=== PATIENT | female | born 1965 | race Caucasian/White ===

== ENCOUNTER → 2019-12-02 08:19 | Outpatient (REF) | payer OTHER, SELFPAY | LOC: ANHLAB 08:19 | PROVIDERS: Visit Provider Nurse Practitioner | DX: D22.5 Melanocytic nevi of trunk (principal) | CPT/HCPCS: 88305 ==

== ENCOUNTER → 2020-12-07 08:26 | Outpatient (REF) | payer BC, SELFPAY | LOC: ANHLAB 08:26 | PROVIDERS: Visit Provider Nurse Practitioner | DX: D22.39 Melanocytic nevi of other parts of face (principal) | CPT/HCPCS: 88305 ==

== ENCOUNTER 2025-05-25 00:22 | Day surgery (SDC) | payer BC, SELFPAY ==
--- OUTSIDE RECORDS SUMMARY | 2010-07-08 18:00 | XMS_ITS | Continuity of Care Document ---
Author Organization [facility] Address [address] [place] [address] Phone Care Team Providers Care Contact Agent Name Role Phone Aravind Brothers MD Unavailable Unavailable Medications Medication Instructions Dosage Effective Dates (start - stop) Status Comments MAXAIR AUTOHALER 0.2MG MISCELL 2 Q 4HR - Active DICLOXACILLIN SODIUM 500MG CAP 1 QID - No Longer Active FLOVENT HFA 44 MCG INHALER 2 BID - No Longer Active FLOVENT 44MCG INHALER 2 BID - No Longer Active FLONASE 0.05% NASAL SPRAY 2 QD - No Longer Active ALBUTEROL 90MCG PUFFS 2 Q 4HR - No Longer Active FLONASE 50MCG APPLICS 2 QD - No Longer Active FLOVENT 44MCG PUFFS 2 BID - No Longer Active Advance Directives Directive Yes / No Effective Date File Name No Information Encounters Encounter Description Practice Location Reason(s) For Visit Diagnoses Date Provider Providers Copied on Encounter [employer] [employer], [address], [place], [place], [id number], [place] tel:[phone] [facility] No Information 1 Zev Nazario. [address], [id number] , . tel: [phone] [employer], [address], [place], [place], [id number], tel:[phone] [facility] ALLERGIC RHINITIS NECRHINITIS DUE TO POLLEN Aug-2 7200 7 Zev Nazario. [address] [place] [address], [id number] , . tel: [phone] [employer], [address], [place], [place], [id number], tel:[phone] [facility] INTRINSIC ASTHMA NOSANGIONEUROTIC EDEMA Solitario-0 200 6 Zev Nazario. [address] [place] [address], [id number] , . tel: [phone] [employer], [address], [place], [place], [address], tel:[phone] [facility] HAIR DISEASES NEC Apr-0 6200 5 Zev Nazario. [address] [place] [address], [id number] , . tel: [phone] Family History Family Member Type Diagnosis Age At Onset No Information Payers Payer name Insurance type Covered constitution party ID Authoriza tion(s) No Information Social History Type Description Quantity Date Captured Comments Sex Female Smoking Status No Information Chief Complaint And Reason For Visit No Information Reason For Referral Reason For Referral No Information History Of Present Illness Encounter Date Complaint History Of Prese nt Illness No Information Functional Status Date Functional Assessmen t No Information Instructions Date Instruction Additional Infor mation No Information Assessments Type Assessment Date No Information Patient Care Teams Name Effective Dates (start - stop) Status Members No Information
--- OUTSIDE RECORDS SUMMARY | 2025-02-04 11:30 | XMS_ITS ---
Author Organization [facility] [place] ([address]) Address [address] [facility] [address] [place] [address] Care Team Providers Care Claims Coordinator Name Role Phone TimLia Primary Care Provider Farideh Stein Unavailable [phone] REASON FOR VISIT SCIT - Traditional Schedule Allergy Immunotherapy Medications Medication SIG (Take, Route, Frequency, Duration) Notes Start Date End Date Status SIT (TRADITIONAL) variable per schedule SC per schedule; Duration: to be determined Active Social History Sex Assigned At : Social History Observation Description Sex Assigned At Female Encounters Encounter Location Date Provider Diagnosis [facility] [address] [facility] [address] [place] [address] 02/04/2025 Farideh Payne Allergic rhinitis du e to pollen J30.1 ; Other allergic rhinitis J30.89 ; Allergic rhinitis due to animal (cat) (dog) hair and dander J30.81 and Other chronic allergic conjunctivitis H10.45 Assessments Encounter Date Diagnosis (ICD Code) Assessment Notes Treatment Notes Treatment Clinical Notes Section Notes 02/04/2025 Allergic rhinitis due to pollen (ICD-10 - J30.1) 02/04/2025 Other allergic rhinitis (ICD-10 - J30.89) 02/04/2025 Allergic rhinitis due to animal (cat) (dog) hair and dander (ICD-10 - J30.81) 02/04/2025 Other chronic allergic conjunctivitis (ICD-10 - H10.45) Plan Of Treatment Medication Medication Name Sig Start Date Stop Date Notes SIT (TRADITIONAL) variable per schedule SC per schedule; Duration: to be determined Next Appt Details Follow Up: 1 Week, Reason: Provider Name:Farideh quesada, 06/04/2025 09:20:00 AM, [address] [employer], [address] [place] [address], [address], Provider Name:Farideh quesada, 06/11/2025 09:00:00 AM, [address], [address], [place], [address], Provider Name:Farideh quesada, 06/18/2025 09:00:00 AM, [address] [employer], [address] [address], [place], [address], Progress Notes * Marco TIDWELLOB: [birth year] (59 yo F)Acc No.[id number]:02/04/2025 SCIT-Aeroallergen Patient: Natividad OG Provider: Abby Payne MD :1965 A ge:59 Y S ex:Female Date:02/04/2025 Address:[address] [place] [address], [facility] Pcp:Lia Tim Subjective: * Chief Complaints: * 1 . SCIT - Traditional Schedule Allergy Immunotherapy. * HPI: * Introduction: The patient is here for scheduled immunotherapy. Please see the attached specialty form regarding the specifics of the administration of these vaccines. As per our protocol, they must undergo a screening health questionnaire (medication changes, reaction(s) to last immunotherapy dose(s), current health status, ACT (if appropriate), self-injectable epinephrine on patient(?) and peak flow (if appropriate)). Also, the patient must wait in our office for 30 minutes after receiving the vaccine(s). Furthermore, every patient must have an epinephrine pen (self-injectable) with them at the time of administration--and carry if for the following 1.5 hours after they leave our office. The patient must also have taken their antihistamine the day of the injection, preferably 2 hours prior. The consent form for SCIT (subcutaneous immunotherapy) is on file. * Medical History: Objective: * Vitals: Assessment: * Assessment: 1. A llergic rhinitis due to pollen - J30.1 (Primary) 2 . O ther allergic rhinitis - J30.89 3 . A llergic rhinitis due to animal (cat) (dog) hair and dander - J30.81 4 . O ther chronic allergic conjunctivitis - H10.45 Plan: * Treatment: * Procedure Codes: 9 5117 IMMUNOTHERAPY INJECTIONS * Follow Up: 1 Week * Billing Information: * Visit Code: * Procedure Codes: 07444 IMMUNOTHERAPY INJECTIONS. * Electronic signature of Ebony Payne MD on 05/25/2025 at 12:25 AM FIELD LIABILITY GENERALIST Sign off status: Pending * Provider: Abby Payne MD Date: 0 02/04/2025 Generated for Pattie bruce/Tami/Ketty on: 07/25/2024 12:25 AM FIELD LIABILITY GENERALIST History and Physical Notes * HPI (History of Present Illness) Category Sub-Category Detail Notes Category Not es *Introduction The patient is here for scheduled immunotherapy. Please see the attached specialty form regarding the specifics of the administration of these vaccines. As per our protocol, they must undergo a screening health questionnaire (medication changes, reaction(s) to last immunotherapy dose(s), current health status, ACT (if appropriate), self-injectable epinephrine on patient(?) and peak flow (if appropriate)). Also, the patient must wait in our office for 30 minutes after receiving the vaccine(s). Furthermore, every patient must have an epinephrine pen (self-injectable) with them at the time of administration--and carry if for the following 1.5 hours after they leave our office. The patient must also have taken their antihistamine the day of the injection, preferably 2 hours prior. The consent form for SCIT (subcutaneous immunotherapy) is on file.
[2025-05-06 11:35] VITALS: BMI 22.0
--- OUTSIDE RECORDS SUMMARY | 2025-05-19 07:00 | XMS_ITS ---
Author Organization [facility] [place] ([address]) Address [address] [facility] [address] [place] [address] Care Team Providers Care Grain Broker And Market Operator Name Role Phone TimLia Primary Care Provider Farideh Stein Unavailable [phone] REASON FOR VISIT SCIT - Traditional Schedule Allergy Immunotherapy Medications Medication SIG (Take, Route, Frequency, Duration) Notes Start Date End Date Status SIT (TRADITIONAL) variable per schedule SC per schedule; Duration: to be determined Active Social History Sex Assigned At : Social History Observation Description Sex Assigned At Female Encounters Encounter Location Date Provider Diagnosis [facility] [address] [facility] [facility] [address] [place] [address] 05/19/2025 Farideh Payne Allergic rhinitis du e to pollen J30.1 ; Other allergic rhinitis J30.89 ; Allergic rhinitis due to animal (cat) (dog) hair and dander J30.81 and Other chronic allergic conjunctivitis H10.45 Assessments Encounter Date Diagnosis (ICD Code) Assessment Notes Treatment Notes Treatment Clinical Notes Section Notes 05/19/2025 Allergic rhinitis due to pollen (ICD-10 - J30.1) 05/19/2025 Other allergic rhinitis (ICD-10 - J30.89) 05/19/2025 Allergic rhinitis due to animal (cat) (dog) hair and dander (ICD-10 - J30.81) 05/19/2025 Other chronic allergic conjunctivitis (ICD-10 - H10.45) Plan Of Treatment Medication Medication Name Sig Start Date Stop Date Notes SIT (TRADITIONAL) variable per schedule SC per schedule; Duration: to be determined Next Appt Details Follow Up: 1 Week, Reason: Provider Name:Farideh quesada, 06/04/2025 09:20:00 AM, [address] [employer], [address] [place] [address], [address], Provider Name:Farideh quesada, 06/11/2025 09:00:00 AM, [address] [employer], [address] [facility], [place], [address], Provider Name:Farideh quesada, 06/18/2025 09:00:00 AM, [address] [employer], [address] [address], [place], [address], Progress Notes * Marco TIDWELLOB: [birth year] (59 yo F)Acc No.[id number]:05/19/2025 SCIT-Aeroallergen Patient: Natividad OG Provider: Abby Payne MD :1965 A ge:59 Y S ex:Female Date:05/19/2025 Address:[address] [place] [address], [facility] Pcp:Lia Tim Subjective: * Chief Complaints: [...] Information: * Visit Code: * Procedure Codes: 83767 IMMUNOTHERAPY INJECTIONS. * Electronic signature of Ebony Payne MD on 05/25/2025 at 12:25 AM RETAIL OFFICE MANAGER Sign off status: Pending * Provider: Abby Payne MD Date: 07/19/2024 Generated for Pattie bruce/Tami/Ketty on: 07/25/2024 12:25 AM RETAIL OFFICE MANAGER History and Physical Notes * HPI (History [...]
--- OUTSIDE RECORDS SUMMARY | 2025-05-25 00:25 | XMS_ITS | Encounter Summary ---
Author Organization [facility] Address [facility] [place] [address] Care Team Providers Care Hand Tier Name Role Phone Lia Tim DO Primary Care Provider [phone] Encounter Details Date Type Department Care Team (Late st Contact Info) Description 02/10/2020 Abstract [facility] [address] [place] [place] [address] Lia Tim DO [address] [place] [address] Social History Tobacco Use Types Packs/Day Years Used Date Smoking Tobacco: Never Smokeless Tobacco: Never Alcohol Use Standard Drinks/Week Comments Yes 0 (1 standard drink = 0.6 oz pur e alcohol) AUDIT-C Answer Date Recorded Frequency of Alcohol Consumption 2-3 times a wee k 11/22/2018 Average Number of Drinks 1 or 2 019 Frequency of Binge Drinking Never 10/31 Comments No Sex and Gender Information Value Date Recorded Sex Assigned at Female 07/28/2024 6:04 PM OYSTER UNLOADER Legal Sex Female 7:52 AM CDT Gender Identity Female 07/28/2024 6:04 PM OYSTER UNLOADER Sexual Orientation Straight 07/28/2024 6: 04 PM OYSTER UNLOADER 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 No / Unsure 01/20/2020 1:46 PM CDT documented as of this encounter Plan of Treatment Not on file documented as of this encounter Procedures Procedure Name Priority Date/Time Associated Diagnosis Comments TSH (OUTSIDE LAB) Routine 08/20/2019 COMPREHENSIVE METABOLIC PANEL Routine 08/20/2019 LIPID PANEL Routine 08/20/2019 CBC, AUTO, NO DIFF Routine 08/20/2019 documented in this encounter Results * LIPID PANEL (08/20/2019) CHOLESTEROL 228 Comment:already reviewed HDL 120 TRIGLYCERIDES 64 LDL (CALCULATED) 95 08/20/2019 [facility] Abstract LABORATORY Final Result * TSH (OUTSIDE LAB) (08/20/2019) TSH 1.576 Comment:already reviewed 08/20/2019 us Doc [facility] Abstract LAB-OUTSIDE/ABSTRACTED Final Result * COMPREHENSIVE METABOLIC PANEL (08/20/2019) SODIUM S/P/B 143 Comment:already reviewed POTASSIUM S/P/B 4.0 CO2 28 CHLORIDE S/P/B 105 GLUCOSE 91 mg/dL CALCIUM S/P/B 9.3 BUN 12 CREATININE S/P/B 0.7 0.5 - 1.0 ALKALINE PHOSPHATASE S/P/B 82 ALT 37 AST 26 BILIRUBIN TOTAL S/P/B 0.5 ALBUMIN S/P/B 3.8 3.5 - 5.0 TOTAL PROTEIN S/P/B 7.5 08/20/2019 us Doc [facility] Abstract LABORATORY Final Result * CBC, AUTO, NO DIFF (08/20/2019) WBC 4.5 Comment:already reviewed RBC 4.8 HGB 14.1 HCT 45.1 MCV 93.6 MCH 29.3 MCHC 31.3 RDW 13.4 PLT 335 MPV 10 08/20/2019 us Doc [facility] Abstract LABORATORY Final Result documented in this encounter Visit Diagnoses Not on filedocumented in this encounter Additional Health Concerns Infection Onset Date Last Indicated Resolved Time COVID-19 Rule Out 01/24/2020 01/24/2020 05/23/2021 3:32 PM OYSTER UNLOADER COVID-19 Rule Out 12/04/2020 12/04/2020 05/23/2021 6:50 PM OYSTER UNLOADER COVID-19 Rule Out 07/10/2022 07/10/2022 07/10/2022 9:58 AM OYSTER UNLOADER COVID-19 Rule Out 07/11/2022 07/11/2022 07/11/2022 12:54 PM OYSTER UNLOADER COVID-19 Rule Out 09/26/2022 09/26/2022 09/26/2022 3:12 PM CDT COVID-19 Rule Out 07/28/2024 07/28/2024 07/28/2024 12:19 PM OYSTER UNLOADER documented as of this encounter Care Teams Hand Tier Relationship Specialty Start Date End Date Lia Tim DO [address] [place] [address] [place] [address] PCP - General FAMILY PRACTICE 11/21/18 documented as of this encounter
--- OUTSIDE RECORDS SUMMARY | 2025-05-25 00:25 | XMS_ITS | Encounter Summary ---
Author Organization [facility] Address [facility] [place] [address] Care Team Providers Care Auto Glass Installer Name Role Phone Lia Tim DO Primary Care Provider [phone] Encounter Details Date Type Department Care Team (Late st Contact Info) Description 02/05/2023 MyChart Message Enc [facility] [address] [place] [address] Lai Tim DO [address] [place], [place] [id number] Poison Jaylyn Social History Tobacco Use Types Packs/Day Years Used Date Smoking Tobacco: Never Smokeless Tobacco: Never Alcohol Use Standard Drinks/Week Comments Yes 0 (1 standard drink = 0.6 oz pur e alcohol) AUDIT-C Answer Date Recorded Frequency of Alcohol Consumption 2-3 times a wee k 11/22/2018 Average Number of Drinks 1 or 2 019 Frequency of Binge Drinking Never 10/31 PHQ-2 Answer Date Recorded PHQ-2 Score - If the patient scores above 3, please move on to questions 3-9 0 10/28/2020 Comments No Sex and Gender Information Value Date Recorded Sex Assigned at Female 07/28/2024 6:04 PM BIOENGINEER Legal Sex Female 7:52 AM CDT Gender Identity Female 07/28/2024 6:04 PM BIOENGINEER Sexual Orientation Straight 07/28/2024 6: 04 PM BIOENGINEER 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 * Emani Tavera LPN - 02/05/2023 3:27 PM CDT My apologizes, what is MDP? * Emani Tavera LPN - 02/05/2023 3:02 PM CDT Pls advise. Thank you! documented in this encounter Plan of Treatment Not on file documented as of this encounter Visit Diagnoses Diagnosis Poison jaylyn- Primary Contact dermatitis and other eczema due to plants (except food) documented in this encounter Additional Health Concerns Infection Onset Date Last Indicated Resolved Time COVID-19 Rule Out 07/28/2024 07/28/2024 07/28/2024 12:19 PM BIOENGINEER documented as of this encounter Care Teams Auto Glass Installer Relationship Specialty Start Date End Date Lia Tim DO [address] [place] [address] [place] [address] PCP - General FAMILY PRACTICE 11/21/18 documented as of this encounter
--- OUTSIDE RECORDS SUMMARY | 2025-05-25 00:25 | XMS_ITS | Encounter Summary ---
Author Organization [facility] Address [facility] [place] [address] Care Team Providers Care Vest Baster Name Role Phone Lia Tim DO Primary Care Provider [phone] Encounter Details Date Type Department Care Team (Late st Contact Info) Description 04/04/2021 MyChart Message Enc [facility] [address] [place] [address] Lia Tim DO [address] [place] [id number] RE: Medication Questions Social History Tobacco Use Types Packs/Day Years [...] Sex Assigned at Female 07/28/2024 6:04 PM SECURITY RESEARCHER Legal Sex Female 7:52 AM CDT Gender Identity Female 07/28/2024 6:04 PM SECURITY RESEARCHER Sexual Orientation Straight 07/28/2024 6: 04 PM SECURITY RESEARCHER 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 No / Unsure 04/07/2021 3:41 PM CDT documented as of this encounter Progress Notes * Lia Tim DO - 04/04/2021 4:44 PM CDT Yes an office visit for steroids. She often is worse than which she thinks she is. documented in this encounter Plan of Treatment Not on file documented as of this encounter Visit Diagnoses Not on filedocumented in this encounter Additional Health Concerns Infection Onset Date Last Indicated Resolved Time COVID-19 Rule Out 01/24/2020 01/24/2020 05/23/2021 3:32 PM SECURITY RESEARCHER COVID-19 Rule Out 12/04/2020 12/04/2020 05/23/2021 6:50 PM SECURITY RESEARCHER COVID-19 Rule Out 07/10/2022 07/10/2022 07/10/2022 9:58 AM SECURITY RESEARCHER COVID-19 Rule Out 07/11/2022 07/11/2022 07/11/2022 12:54 PM SECURITY RESEARCHER COVID-19 Rule Out 09/26/2022 09/26/2022 09/26/2022 3:12 PM CDT COVID-19 Rule Out 07/28/2024 07/28/2024 07/28/2024 12:19 PM SECURITY RESEARCHER documented as of this encounter Care Teams Vest Baster Relationship Specialty Start Date End Date Lia Tim DO [address] [place] [address] [place] [address] PCP - General FAMILY PRACTICE 11/21/18 documented as of this encounter
--- OUTSIDE RECORDS SUMMARY | 2025-05-25 00:25 | XMS_ITS | Encounter Summary ---
Author Organization [facility] Address [facility] [place] [address] Care Team Providers Care Construction Technology Instructor Name Role Phone GlenroyLia Khurram MAY Primary Care Provider [phone] Encounter Details Date Type Department Care Team (Late st Contact Info) Description 10/02/2022 MyChart Message Enc [facility] [address] [place] [address] Heather De Jesus, PRESCHOOL SUBSTITUTE TEACHER Sinus infection Social History Tobacco Use Types Packs/Day Years Used Date Smoking Tobacco: Never Smokeless Tobacco: Never Alcohol Use Standard Drinks/Week Comments Yes 0 (1 standard drink = 0.6 oz pur e alcohol) AUDIT-C Answer Date Recorded Frequency of Alcohol Consumption 2-3 times a dorene k 11/22/2018 Average Number of Drinks 1 or 2 019 Frequency of Binge Drinking Never 10/31 PHQ-2 Answer Date Recorded PHQ-2 Score - If the patient scores above 3, please move on to questions 3-9 0 10/28/2020 Comments No Sex and Gender Information Value Date Recorded Sex Assigned at Female 07/28/2024 6:04 PM CONSULTANT ELECTRONICS Legal Sex Female 7:52 AM CDT Gender Identity Female 07/28/2024 6:04 PM CONSULTANT ELECTRONICS Sexual Orientation Straight 07/28/2024 6: 04 PM CONSULTANT ELECTRONICS 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 No / Unsure 10/03/2022 11:14 AM CDT documented as of this encounter Progress Notes * Maria Eugenia River LPN - 10/03/2022 10:31 AM CDT Office visit scheduled. * CIRO Navarro - 10/03/2022 7:45 AM CDT I would like to see her today or tomorrow to re check her lungs and further evaluate her other symptoms. * Eliane Salamanca MA - 10/03/2022 7:12 AM CDT Patient was seen 09/26/22 tested positive for Influenza B, please advise. Do you want patient to come back in for another o.v. to be re evaluated? documented in this encounter Plan of Treatment Not on file documented as of this encounter Visit Diagnoses Not on filedocumented in this encounter Additional Health Concerns Infection Onset Date Last Indicated Resolved Time COVID-19 Rule Out 07/28/2024 07/28/2024 07/28/2024 12:19 PM CONSULTANT ELECTRONICS documented as of this encounter Care Teams Construction Technology Instructor Relationship Specialty Start Date End Date Lia Tim DO [address] [place] [address] [place] [address] PCP - General FAMILY PRACTICE 11/21/18 documented as of this encounter
--- OUTSIDE RECORDS SUMMARY | 2025-05-25 00:26 | XMS_ITS | Encounter Summary ---
Author Organization [facility] Address [facility] [place] [address] Care Team Providers Care Technical Support Engineer Name Role Phone Lia Tim DO Primary Care Provider [phone] Encounter Details Date Type Department Care Team (Late st Contact Info) Description 10/13/2024 MyChart Message Enc [facility] [address] [place] [phone] Lia Tim DO [address] [place], [place] [phone] [place] eye/conjunctivitis Social History Tobacco Use Types Packs/Day Years Used Date Smoking Tobacco: Never Smokeless Tobacco: Never Alcohol Use Standard Drinks/Week Comments Yes 0 (1 standard drink = 0.6 oz pur e alcohol) AUDIT-C Answer Date Recorded Frequency of Alcohol Consumption 2-3 times a wee k 11/22/2018 Average Number of Drinks 1 or 2 019 Frequency of Binge Drinking Never 10/31 PHQ-2 Answer Date Recorded Patient Health Questionnaire-2 Score 0 07/28/2024 Comments No Sex and Gender Information Value Date Recorded Sex Assigned at Female 07/28/2024 6:04 PM BINDER CASER Legal Sex Female 7:52 AM CDT Gender Identity Female 07/28/2024 6:04 PM BINDER CASER Sexual Orientation Straight 07/28/2024 6: 04 PM BINDER CASER 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
--- OUTSIDE RECORDS SUMMARY | 2025-05-25 00:26 | XMS_ITS | Patient Health Record ---
Author Organization [facility] [employer] [place] ([address]) Address [address] [place] [address] Care Team Providers Care Standards Engineer Name Role Phone Lia Tim Primary Care Provider Farideh Stein Unavailable [phone] Allergies No Known Allergies Results Component Value Reference Range Notes Spirometry Reviewed date: Interpretation:Abnormal Performing Lab: Notes/Report: Abnormal SpiroPreBronchodilator_FVC 3.44 SpiroPostBronchodilator_FEF25_75 0 SpiroPreBronchodilator_FEF25_75 0.96 SpiroPreBronchodilator_FEV1 2.21 SpiroPrecentPredictionPost_FEF25_75 0 SpiroPrecentPredictionPost_FEV1 0 SpiroPrecentPredictionPost_FEV1_OVER_FVC 0 SpiroPrecentPredictionPost_FVC 0 SpiroPrecentPredictionPre_FEF25_75 38.1 SpiroPrecentPredictionPre_FEV1 88.4 SpiroPrecentPredictionPre_FEV1_OVER_FVC 81.1 SpiroPrecentPredictionPre_FVC 109.6 SpiroPredicted_FEF25_75 2.52 SpiroPreBronchodilator_FEV1_OVER_FVC 64.21 SpiroPreBronchodilator_PEF 5.82 SpiroPostBronchodilator_FVC 0 SpiroPostBronchodilator_FEV1 0 SpiroPostBronchodilator_FEV1_OVER_FVC 0 SpiroPostBronchodilator_PEF 0 SpiroPredicted_FVC 3.14 SpiroPredicted_FEV1 2.5 SpiroPredicted_FEV1_OVER_FVC 79.13 SpiroPredicted_PEF 5.78 Reason For Referral No Information Medications Medication SIG (Take, Route, Frequency, Duration) Notes Start Date End Date Status Cetirizine HCl 10 MG 1 tab(s) orally onc e a day; Duration: 30 days Active Auvi-Q 0.3 mg as directed intramuscularly once; Duration: 30 day(s) Active Ventolin HFA 108 (90 Base) MCG/ACT 2 puff(s) inhaled every 6 hours Active AUVI-Q 0.3 mg as directed intramuscularly once; Duration: 30 day(s) Active SIT (TRADITIONAL) variable per schedule SC per schedule; Duration: to be determined Active Pataday 0.2 % 1 drop into affected eye Ophthalmic Once a day Active VENTOLIN HFA 90 mcg/inh 2 puff(s) inhale d every 6 hours Active methylPREDNISolone 4 MG as directed Oral ly daily; Duration: 6 days 02/10/2025 Active Fluticasone-Salmeterol 232-14 MCG/ACT 2 puffs Inhalation Twice a day; Duration: 90 days Active Amoxicillin-Pot Clavulanate 875-125 MG 1 tablet Orally every 12 hrs; Duration: 10 days 02/10/2025 Active Montelukast Sodium 10 MG 1 tablet Orally Once a day; Duration: 90 days Active Ipratropium Redgranite 0.06 % 2 sprays in each nostril Nasally three times a day; Duration: 30 days Active Citalopram Hydrobromide 10 MG 1 tab(s) orally once a day Active Vitamin D3 *Please review and pick correct strength-formula tion from [employer] options. If intended option is not shown, discontinue and re-order from [employer]* Active CETIRIZINE 10 mg 1 tab(s) orally once a day; Duration: 30 days Active Triamcinolone Acetonide 0.1 % 1 osman applied topically Qday, PRN; Duration: 90 days 08/23/2022 Active NASAL WASHES N/A as directed intranasally as needed; Duration: 30 Active Azelastine HCl 137 MCG/SPRAY 2 sprays in each nostril Nasally Twice a day; Duration: 30 days 02/19/2024 Active Immunizations Vaccine Route Administration Date Status Comme nts NOC Influenza-Fluzone Unknown 04/08/2021 Administered COVID-19 (Moderna) Unknown 04/29/2021 Administered Social History Tobacco Use: Social History Observation Description Date Details (start date - stop date) Never Smoker NA - NA Sex Assigned At : Social History Observation Description Sex Assigned At Female Tobacco Control (Standard) Question Answer Notes Tobacco use: Nonsmoker AUDIT-C (Standard) Question Answer Notes Did you have a drink contain ing alcohol in the past year? Yes How often did you have a dri nk containing alcohol in the past year? 2 to 3 times a week (3 points) How many drinks did you have on a typical day when you were drinking in the past year? 3 or 4 drinks (1 point) How often did you have six o r more drinks on one occasion in the past year? Never (0 point) Points 4 Interpretation Positive Problems Problem Type SNOMED Code ICD Code Onset Dates Problem Status W/U Status Risk Notes Problem Anxiety disorder (632037392) Anxiety disorder, unspecified (F41.9) Active confirmed Problem Chronic allergic conjunctivitis (38670856) Other chronic allergic conjunctivitis (H10.45) Active confirmed Problem Allergic rhinitis caused by animal hair and dander (814188871495706) Allergic rhinitis due to animal (cat) (dog) hair and dander (J30.81) Active confirmed Problem Allergic rhinitis (98984949) Other allergic rhinitis (J30.89) Active confirmed Problem Uncomplicated moderate persistent asthma (348908785) Moderate persistent asthma, uncomplicated (J45.40) Active confirmed Problem Allergic rhinitis caused by pollen (disorder) (37729286) Allergic rhinitis due to pollen (J30.1) Active confirmed Problem Allergic rhinitis caused by animal hair and dander (337084431603084) Allergic rhinitis due to animal (cat) (dog) hair and dander (J30.81) Active confirmed Problem Allergic rhinitis (09924323) Other allergic rhinitis (J30.89) Active confirmed Problem Chronic allergic conjunctivitis (87081107) Other chronic allergic conjunctivitis (H10.45) Active confirmed Problem Allergy to seafood (27249830) Allergy to seafood (Z91.013) Active confirmed Vital Signs Oximetry 98 % 02/10/2025 Blood pressure diastolic 80 mm Hg 02/10/2025 Height 64 in 02/10/2025 Blood pressure systolic 123 mm Hg 02/10/2025 Weight 140.2 lbs 02/10/2025 BMI 24.06 kg/m2 02/10/2025 Encounters Encounter Location Date Provider Diagnosis [facility] [address] [place] [phone] 03/04/2025 Farideh Payne Allergic rhinitis du e to pollen J30.1 ; Other allergic rhinitis J30.89 ; Allergic rhinitis due to animal (cat) (dog) hair and dander J30.81 and Other chronic allergic conjunctivitis H10.[address] [phone] 01/12/2025 Farideh Payne Allergic rhinitis du e to pollen J30.1 ; Other allergic rhinitis J30.89 ; Allergic rhinitis due to animal (cat) (dog) hair and dander J30.81 and Other chronic allergic conjunctivitis H10.45 [facility] [address] [place] [phone] 12/22/2024 Farideh Payne Allergic rhinitis du e to pollen J30.1 ; Other allergic rhinitis J30.89 ; Allergic rhinitis due to animal (cat) (dog) hair and dander J30.81 and Other chronic allergic conjunctivitis H10.45 [facility] [address] [place] [phone] 12/01/2024 Farideh Payne Allergic rhinitis du e to pollen J30.1 ; Other allergic rhinitis J30.89 ; Allergic rhinitis due to animal (cat) (dog) hair and dander J30.81 and Other chronic allergic conjunctivitis H10.[address] [phone] 11/13/2024 Farideh Payne Allergic rhinitis du e to pollen J30.1 ; Other allergic rhinitis J30.89 ; Allergic rhinitis due to animal (cat) (dog) hair and dander J30.81 and Other chronic allergic conjunctivitis H10.[address] [phone] 10/30/2024 Farideh Payne Allergic rhinitis du e to pollen J30.1 ; Other allergic rhinitis J30.89 ; Allergic rhinitis due to animal (cat) (dog) hair and dander J30.81 and Other chronic allergic conjunctivitis H10.45 [facility] [address] [place] [address] [employer] [address] [address] 10/02/2024 Farideh Payne Allergic rhinitis du e to pollen J30.1 ; Other allergic rhinitis J30.89 ; Allergic rhinitis due to animal (cat) (dog) hair and dander J30.81 and Other chronic allergic conjunctivitis H10.45 [facility] [address] [place], [place] [address] [address] [place] [phone] 09/10/2024 Faridehdayanara Liebermanm Allergic rhinitis du e to pollen J30.1 ; Other allergic rhinitis J30.89 ; Allergic rhinitis due to animal (cat) (dog) hair and dander J30.81 and Other chronic allergic conjunctivitis H10.45 [facility] [address] [place] [address] [address] [phone] 08/05/2024 aFrideh Liebermanm Allergic rhinitis du e to pollen J30.1 ; Other allergic rhinitis J30.89 ; Allergic rhinitis due to animal (cat) (dog) hair and dander J30.81 and Other chronic allergic conjunctivitis H10.45 [facility] [address] [place], [place] [address] [address] [phone] 07/15/2024 Farideh Payne Allergic rhinitis du e to pollen J30.1 ; Other allergic rhinitis J30.89 ; Allergic rhinitis due to animal (cat) (dog) hair and dander J30.81 and Other chronic allergic conjunctivitis H10.45 [facility] [address] [place], [place] [address] [address] [place] [phone] 06/23/2024 Farideh Elmer Allergic rhinitis du e to pollen J30.1 ; Other allergic rhinitis J30.89 ; Allergic rhinitis due to animal (cat) (dog) hair and dander J30.81 and Other chronic allergic conjunctivitis H10.45 [facility] [address] [place], [place] [address] [address] [place] [phone] 06/17/2024 Faridehdayanara Liebermanm Allergic rhinitis du e to pollen J30.1 ; Other allergic rhinitis J30.89 ; Allergic rhinitis due to animal (cat) (dog) hair and dander J30.81 and Other chronic allergic conjunctivitis H10.45 [facility] [address] [place] [phone] 06/02/2024 Farideh Payne Allergic rhinitis du e to pollen J30.1 ; Other allergic rhinitis J30.89 ; Allergic rhinitis due to animal (cat) (dog) hair and dander J30.81 and Other chronic allergic conjunctivitis H10.45 [facility] [address] [place] [phone] 05/27/2024 Farideh Payne Allergic rhinitis du e to pollen J30.1 ; Other allergic rhinitis J30.89 ; Allergic rhinitis due to animal (cat) (dog) hair and dander J30.81 and Other chronic allergic conjunctivitis H10.45 [facility] [address] [place] [phone] 04/30/2025 Farideh Payne Allergic rhinitis du e to pollen J30.1 ; Other allergic rhinitis J30.89 ; Allergic rhinitis due to animal (cat) (dog) hair and dander J30.81 and Other chronic allergic conjunctivitis H10.45 [facility] [address] [place] [phone] 02/10/2025 Farideh Payne Moderate persistent asthma, uncomplicated J45.40 ; Acute upper respiratory infection, unspecified J06.9 ; Other chronic allergic conjunctivitis H10.45 ; Allergic rhinitis due to pollen J30.1 ; Allergic rhinitis due to animal (cat) (dog) hair and dander J30.81 ; Other allergic rhinitis J30.89 and Allergy to seafood Z91.013 [facility] [address] [place] [phone] 10/14/2024 Farideh Payne Moderate persistent asthma, uncomplicated J45.40 ; Acute upper respiratory infection, unspecified J06.9 ; Other chronic allergic conjunctivitis H10.45 ; Allergic rhinitis due to pollen J30.1 ; Allergic rhinitis due to animal (cat) (dog) hair and dander J30.81 ; Other allergic rhinitis J30.89 and Allergy to seafood Z91.013 [facility] [address] [phone] 04/06/2025 Farideh Payne Allergic rhinitis du e to pollen J30.1 ; Other allergic rhinitis J30.89 ; Allergic rhinitis due to animal (cat) (dog) hair and dander J30.81 and Other chronic allergic conjunctivitis H10.45 Assessments Encounter Date Diagnosis (ICD Code) Assessment Notes Treatment Notes Treatment Clinical Notes Section Notes 05/27/2024 Allergic rhinitis due to pollen (ICD-10 - J30.1) 06/02/2024 Allergic rhinitis due to pollen (ICD-10 - J30.1) 06/17/2024 Allergic rhinitis due to pollen (ICD-10 - J30.1) 06/23/2024 Allergic rhinitis due to pollen (ICD-10 - J30.1) 07/15/2024 Allergic rhinitis due to pollen (ICD-10 - J30.1) 08/05/2024 Allergic rhinitis due to pollen (ICD-10 - J30.1) 09/10/2024 Allergic rhinitis due to pollen (ICD-10 - J30.1) 10/02/2024 Allergic rhinitis due to pollen (ICD-10 - J30.1) 10/14/2024 Moderate persistent asthma, uncomplicated (ICD-10 - J45.40) Persistent asthma and improvement with Advair. ACT 23. Spirometry at last check is essentially normal but signs of obstruction. Plan to continue Advair and prn albuterol. Asthma is not currently affected 10/14/2024 Acute upper respiratory infection, unspecified (ICD-10 - J06.9) Appears to have a URI which may have started about 3 weeks ago. Symptoms may also be allergies. Continue immunotherapy and start a trial of antibiotics. Start a trial of ipratropium 10/30/2024 Allergic rhinitis due to pollen (ICD-10 - J30.1) 11/13/2024 Allergic rhinitis due to pollen (ICD-10 - J30.1) 12/01/2024 Allergic rhinitis due to pollen (ICD-10 - J30.1) 12/22/2024 Allergic rhinitis due to pollen (ICD-10 - J30.1) 01/12/2025 Allergic rhinitis due to pollen (ICD-10 - J30.1) 02/10/2025 Acute upper respiratory infection, unspecified (ICD-10 - J06.9) Treat current sinusitis with antibiotics and steroids. If no improvement, recommend ENT evaluation. Continue immunotherapy 02/10/2025 Moderate persistent asthma, uncomplicated (ICD-10 - J45.40) Persistent asthma and improvement with Advair. ACT 21. Spirometry today is essentially normal but signs of obstruction. Plan to continue Advair and prn albuterol. 03/04/2025 Allergic rhinitis due to pollen (ICD-10 - J30.1) 04/06/2025 Allergic rhinitis due to pollen (ICD-10 - J30.1) 04/30/2025 Allergic rhinitis due to pollen (ICD-10 - J30.1) 04/30/2025 Other allergic rhinitis (ICD-10 - J30.89) 04/06/2025 Other allergic rhinitis (ICD-10 - J30.89) 03/04/2025 Other allergic rhinitis (ICD-10 - J30.89) 02/10/2025 Other chronic allergic conjunctivitis (ICD-10 - H10.45) Given ocular signs and symptoms I encouraged allergy avoidance measures and meds as above. 01/12/2025 Other allergic rhinitis (ICD-10 - J30.89) 12/22/2024 Other allergic rhinitis (ICD-10 - J30.89) 12/01/2024 Other allergic rhinitis (ICD-10 - J30.89) 11/13/2024 Other allergic rhinitis (ICD-10 - J30.89) 10/30/2024 Other allergic rhinitis (ICD-10 - J30.89) 10/02/2024 Other allergic rhinitis (ICD-10 - J30.89) 10/14/2024 Other chronic allergic conjunctivitis (ICD-10 - H10.45) Given ocular signs and symptoms I encouraged allergy avoidance measures and meds as above. Start Pataday. If no improvement, recommend being evaluated by ophthalmology 09/10/2024 Other allergic rhinitis (ICD-10 - J30.89) 08/05/2024 Other allergic rhinitis (ICD-10 - J30.89) 07/15/2024 Other allergic rhinitis (ICD-10 - J30.89) 06/23/2024 Other allergic rhinitis (ICD-10 - J30.89) 06/17/2024 Other allergic rhinitis (ICD-10 - J30.89) 06/02/2024 Other allergic rhinitis (ICD-10 - J30.89) 05/27/2024 Other allergic rhinitis (ICD-10 - J30.89) 05/27/2024 Allergic rhinitis due to animal (cat) (dog) hair and dander (ICD-10 - J30.81) 06/02/2024 Allergic rhinitis due to animal (cat) (dog) hair and dander (ICD-10 - J30.81) 06/17/2024 Allergic rhinitis due to animal (cat) (dog) hair and dander (ICD-10 - J30.81) 06/23/2024 Allergic rhinitis due to animal (cat) (dog) hair and dander (ICD-10 - J30.81) 07/15/2024 Allergic rhinitis due to animal (cat) (dog) hair and dander (ICD-10 - J30.81) 08/05/2024 Allergic rhinitis due to animal (cat) (dog) hair and dander (ICD-10 - J30.81) 09/10/2024 Allergic rhinitis due to animal (cat) (dog) hair and dander (ICD-10 - J30.81) 10/02/2024 Allergic rhinitis due to animal (cat) (dog) hair and dander (ICD-10 - J30.81) 11/13/2024 Allergic rhinitis due to animal (cat) (dog) hair and dander (ICD-10 - J30.81) 12/01/2024 Allergic rhinitis due to animal (cat) (dog) hair and dander (ICD-10 - J30.81) 10/30/2024 Allergic rhinitis due to animal (cat) (dog) hair and dander (ICD-10 - J30.81) 10/14/2024 Allergic rhinitis due to pollen (ICD-10 - J30.1) Natividad clearly suffers from atopic disease based upon our skin testing. Accordingly, we have introduced a new, aggressive medication regimen, discussed nasal washes and allergy-specific avoidance measures. She is tolerating SCIT without large local or systemic symptoms. She was instructed to carry her epinephrine autoinjector for 2 hours after leaving the office. 12/22/2024 Allergic rhinitis due to animal (cat) (dog) hair and dander (ICD-10 - J30.81) 01/12/2025 Allergic rhinitis due to animal (cat) (dog) hair and dander (ICD-10 - J30.81) 04/06/2025 Allergic rhinitis due to animal (cat) (dog) hair and dander (ICD-10 - J30.81) 04/30/2025 Allergic rhinitis due to animal (cat) (dog) hair and dander (ICD-10 - J30.81) 03/04/2025 Allergic rhinitis due to animal (cat) (dog) hair and dander (ICD-10 - J30.81) 02/10/2025 Allergic rhinitis due to pollen (ICD-10 - J30.1) Natividad clearly suffers from atopic disease based upon our skin testing. Accordingly, we have introduced a new, aggressive medication regimen, discussed nasal washes and allergy-specific avoidance measures. She is tolerating SCIT without large local or systemic symptoms. She was instructed to carry her epinephrine autoinjector for 2 hours after leaving the office. 02/10/2025 Allergic rhinitis due to animal (cat) (dog) hair and dander (ICD-10 - J30.81) 10/30/2024 Other chronic allergic conjunctivitis (ICD-10 - H10.45) 03/04/2025 Other chronic allergic conjunctivitis (ICD-10 - H10.45) 04/30/2025 Other chronic allergic conjunctivitis (ICD-10 - H10.45) 04/06/2025 Other chronic allergic conjunctivitis (ICD-10 - H10.45) 01/12/2025 Other chronic allergic conjunctivitis (ICD-10 - H10.45) 12/22/2024 Other chronic allergic conjunctivitis (ICD-10 - H10.45) 10/14/2024 Allergic rhinitis due to animal (cat) (dog) hair and dander (ICD-10 - J30.81) 12/01/2024 Other chronic allergic conjunctivitis (ICD-10 - H10.45) 11/13/2024 Other chronic allergic conjunctivitis (ICD-10 - H10.45) 10/02/2024 Other chronic allergic conjunctivitis (ICD-10 - H10.45) 09/10/2024 Other chronic allergic conjunctivitis (ICD-10 - H10.45) 08/05/2024 Other chronic allergic conjunctivitis (ICD-10 - H10.45) 07/15/2024 Other chronic allergic conjunctivitis (ICD-10 - H10.45) 06/23/2024 Other chronic allergic conjunctivitis (ICD-10 - H10.45) 06/17/2024 Other chronic allergic conjunctivitis (ICD-10 - H10.45) 06/02/2024 Other chronic allergic conjunctivitis (ICD-10 - H10.45) 05/27/2024 Other chronic allergic conjunctivitis (ICD-10 - H10.45) 10/14/2024 Other allergic rhinitis (ICD-10 - J30.89) 02/10/2025 Other allergic rhinitis (ICD-10 - J30.89) 10/14/2024 Allergy to seafood (ICD-10 - Z91.013) History of angioedema and urticaria with shellfish. Recommend continued avoidance and Auvi-Q to be available at all times. 02/10/2025 Allergy to seafood (ICD-10 - Z91.013) History of angioedema and urticaria with shellfish. Recommend continued avoidance and Auvi-Q to be available at all times. 10/14/2024 Other 02/10/2025 Other Plan Of Treatment Next Appt Details Provider Name:Farideh quesada, 06/04/2025 09:20:00 AM, [address] [facility], [address] [place] [address], [phone], Provider Name:Farideh quesada, 06/11/2025 09:00:00 AM, [address] [facility], [address], [place], [phone], Provider Name:Farideh quesada, 06/18/2025 09:00:00 AM, [address] [facility], [address] [place] [address], [phone], Insurance Providers Payer Name Payer Address Payer Phone Subscriber Number Group Number Insured Name Patient Relationship to Insured Coverage Start Date Coverage End Date [facility] [address] [place] [address] [id number] Natividad De Luna Self - patient is the insured Medical (General) History Medical History History ICD Code Anxiety disorder, unspecified F41.9 Allergic rhinitis due to pollen J30.1 Moderate persistent asthma, uncomplicate d J45.40 Surgical History Surgery Date(Month/Year) Sinus surgery 2013
--- OUTSIDE RECORDS SUMMARY | 2025-05-25 00:26 | XMS_ITS | Clinical Summary ---
Author Organization [facility] Address [facility] [place] [address] Care Team Providers Care Assistive Technology Trainer Name Role Phone Lia Tim DO Primary Care Provider [phone] Allergies Active Allergy Reactions Criticality Noted Date Comments Seasonal Runny Nose Medium 11/29/2012 Medications Cetirizine HCl 10 MG Cap Take 1 capsule by mouth. Active citalopram 20 MG tablet 08/20/19 20 Active AUVI-Q 0.3 MG/0.3ML injection see administration instructions. 07/27/19 22 Active vitamin D3, cholecalciferol, 1000 UNIT Tab tablet Take 1 tablet (25 mcg total) by mouth daily. Active triamcinolone (KENALOG) 0.1 % cream 08/23/19 23 Active ipratropium-albu terol (DUONEB) 0.5-2.5 (3) MG/3ML SolutionIndicati ons:Moderate persistent asthma with acute exacerbation (HHS/HCC) Take 3 mLs by nebulization every 4 (four) hours as needed. 180 mL 6 10/04/19 23 Active cromolyn (INTAL) 20 MG/2ML nebulizer solutionIndicati ons:Moderate persistent asthma with acute exacerbation (HHS/HCC) Take 2 mLs (20 mg total) by nebulization 4 (four) times daily. 240 mL 12 10/04/19 23 Active NEBULIZER DEVICE, DME,Indications: Moderate persistent asthma with acute exacerbation (HHS/HCC),Pneumo es of both lungs due to infectious organism, unspecified part of lung Take 1 Device by nebulization every 4 (four) hours as needed. 1 Device 10/04/19 23 Active PROAIR HFA 108 (90 Base) MCG/ACT inhalerIndicatio ns:Moderate persistent asthma with acute exacerbation (HHS/HCC) Inhale 2 puffs into the lungs every 6 (six) hours as needed for Wheezing. 18 g 07/05/19 24 Active fluticasone-salm eterol (ADVAIR HFA) 230-21 MCG/ACT inhalerIndicatio ns:Moderate persistent asthma without complication (HHS/HCC) USE 2 INHALATIONS ORALLY TWICE DAILY 36 g 2 04/01/20 24 Active Additional Information Patient not taking.Reported on 01/09/2025 terbinafine (LAMISIL) 250 MG tabletIndication s:Onychomycosis of left great toe Take 1 tablet (250 mg total) by mouth daily. 90 tablet 01/10/20 25 Active montelukast (SINGULAIR) 10 MG tabletIndication s:History of upper respiratory infection Take 1 tablet (10 mg total) by mouth daily. 30 tablet 05/12/20 25 Active montelukast (SINGULAIR) 10 MG tabletIndication s:History of upper respiratory infection TAKE 1 TABLET DAILY 90 tablet 02/20/20 25 025 Discontin ued(Reord er) Active Problems Problem Noted Date Diagnosed Date Moderate persistent asthma without complication 10/03/2022 Chronic allergic conjunctivitis 10/03/2022 Anxiety disorder 10/03/2022 Allergy to seafood 10/03/2022 Allergic rhinitis due to pollen 10/03/2022 Allergic rhinitis due to animal hair and dander 10/03/2022 Asthma 11/29/2012 Anosmia 11/29/2012 Overview (11/22/2018): Date Onset: 11/29/2012 Premenstrual dysphoric disorder 11/29/2012 Overview (11/22/2018): Date Onset: 11/29/2012 Allergic rhinitis 11/29/2012 Overview (10/03/2022): Date Onset: 11/29/2012 Immunizations Immunization Administration Dates Next Due Flucelvax 6 Months+ (Prefill ed Syringe) 04/30/2018 Fluzone 6 Months+ Quad (0.5 mL Prefilled Syringe) 04/29/2019,04/04/2017,04/06/2016 Hepatitis A (Generic) 07/28/2004,01/26/2004 Hepatitis A (Havrix [address]) 07/28/2004,2003 Influenza (Generic) 05/01/2018, 7,04/06/2016,2014,05/15/2013,07/15/2012 Influenza Adult (Generic) 04/10/2024,04/2023,04/30/2022,2020,04/05/2020,04/05/2020,04/29/2019,1 ,04/04/2017,04/06/2016, 015,07/15/2012 MMR 08/18/2003 MMR (MMRII) 08/18/2003 MODERNA COVID-19 (MATERIALS PLANNER/PRODUCTION PLANNER NATHANIEL ASHELY), MRNA, LNP-S, PF, 50 MCG/ 0.25 ML DOSE 10/25/2021 Pneumococcal (Pneumovax 23) 04/14/2020, 0 Shingrix 06/15/2020,04/14/2020 Td 08/18/2003 Td (TDVAX) 08/18/2003 Tdap (Boostrix) 11/25/2015 Tdap (Generic) 04/18/2021,11/26/2015,11/25/2015 Family History Medical History Relation Comments Hyperlipidemia Brother Cancer Father prostate CA Hyperlipidemia Father Hypertension Father Cancer Maternal Grandmother Hyperlipidemia Mother Thyroid Disease Mother diverticulitis Mother Breast Cancer Neg Hx Relation Status Comments Brother Alive Father Alive Maternal Grandfather alz Maternal Grandmother lymphoma Mother Alive Paternal Grandfather Paternal Grandmother obesity Son 1 Alive Son 2 Alive Social History Tobacco Use Types Packs/Day Years Used Date Smoking Tobacco: Never Smokeless Tobacco: Never Tobacco Cessation:Counseling Given: No Alcohol Use Standard Drinks/Week Comments Yes 0 [...] Sex Assigned at Female 07/28/2024 6:04 PM TRANSPORTATION BROKER Legal Sex Female 7:52 AM CDT Gender Identity Female 07/28/2024 6:04 PM TRANSPORTATION BROKER Sexual Orientation Straight 07/28/2024 6: 04 PM TRANSPORTATION BROKER 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 file Not on file Not on file Last Filed Vital Signs Vital Sign Reading Time Taken Comments Blood Pressure 124/82 01/09/2025 9:56 AM CDT Pulse 65 01/09/2025 9:24 AM CDT Temperature 37.6 C (99.6 F) 01/09/2025 9:24 AM CDT Respiratory Rate 12 01/09/2025 9:24 AM CDT Oxygen Saturation 99% 01/09/2025 9:24 AM CDT Inhaled Oxygen Concentration - - Weight 62.6 kg (138 lb) 01/09/2025 9:24 AM CDT Height 165.1 cm (5' 5) 01/09/2025 9:24 AM CDT Body Mass Index 22.96 01/09/2025 9:24 AM CDT Plan of Treatment Health Maintenance Due Date Last Done Comments Cervical Cancer Screening Pap Smear (Age 30 to 64) Every 3 Years 1965 Hepatitis B Vaccines (1 of 3 - 19+ 3-dose series) 1985 Annual Physical 04/08/2021 04/08/2020 (Sanjana ent Reported), 04/01/2019 Cervical Cancer Screening Pap with HPV Testing (Age 30 to 64) Every 5 Years 03/06/2023 03/06/2018 Cervical Cancer Screening with HPV 03/06/2023 COVID-19 Vaccine ( season) 2025 12/02/2024, 02/27/2024, 04/04/2023, Additional history exists Influenza Adult (#1) 2025 04/10/2024, 05/11/2023, 04/30/2022, Additional history exists Mammogram Screening 10/20/2025 10/20/2024, 10/19/2023, 09/25/2022, Additional history exists Colorectal Cancer Screening Colonoscopy (10 Years) 06/22/2027 06/22/2017 DTaP, Tdap and Td Vaccines (5 - Td or Tdap) 04/18/2031 04/18/2021, 11/26/2015, 11/25/2015, Additional history exists Hepatitis A Vaccines Aged Out 07/28/2004, 07/28/2004, 01/26/2004, Additional history exists No longer eligible based on patient's age to complete this topic Zoster Vaccines Completed 06/15/2020, 04/14/2020 Hepatitis C Addressed 11/14/2021 (Prev iously completed) Overridden with the intention of not completing the topic Pneumococcal Vaccine: 50+ Years Completed 01/08/2024, 04/14/2020, 04/14/2020 PHQ-2 (Physician Iqugmi[place]) Completed 07/28/2024 Meningococcal B Vaccine Aged Out No l onger eligible based on patient's age to complete this topic Meningococcal Vaccine Aged Out No ana nadege eligible based on patient's age to complete this topic RSV Immunizations Under 20 Months Aged Out No longer eligible based on patient's age to complete this topic Procedures Procedure Name Priority Date/Time Associated Diagnosis Comments MG SCREENING W MIA JOE DIGI Routine 10/20/2024 9:09 AM CDT Encounter for screening mammogram for malignant neoplasm of breast HPV MRNA E6/E7 Routine 03/06/2018 4:55 PM CDT COLONOSCOPY GENERIC (SCAN ORDER) Routine 06/22/2017 from Last 3 Months or Most Recently Relevant to Health Maintenance Results * MG SCREENING W MIA JOE DIGI (10/20/2024 9:09 AM CDT) Anatomical Region Laterality Modality Breast Bilateral Mammography 10/20/2024 9:18 AM CDT Impressions 10/20/2024 5:05 PM CDT ===== IMPRESSION: ===== 1. Stable mammographic appearance with no new findings to suggest malignancy in either breast. Assessment: ACR BI-RADS 1 - NEGATIVE Recommendation: 1:Routine Screening Bilateral Comments: Ordered By: ROSIE CUTLER Interpreted By: Araceli Diallo, 10/20/2024 9:18 AM Narrative 10/20/2024 5:05 PM CDT [facility] [address] [place] [address] EXAMINATION: Digital bilateral screening mammogram with 3-D tomosynthesis EXAM DATE/TIME: 10/20/2024 8:03 AM REASON FOR EXAM: YEARLY COMPARISON: 10/19/2023.. 09/25/2022 Technique: Digital screening mammography of both breasts was performed in addition to 3-D Tomosynthesis technique. This study was read with the assistance of a computer-aided detection system. Tissue density: There are scattered areas of fibroglandular density. Findings: There is no new focal asymmetry, dominant mass lesion, area of skin thickening, or cluster of suspicious appearing calcifications in either breast to suggest malignancy. Rosie Cutler MD MAMMO Final Resul t * HPV MRNA E6/E7 (03/06/2018 4:55 PM CDT) HPV MRNA E6/E7 Not Detected NOT DETECTED 03/10/2018 1:01 PM CDT [employer] SHAILESH PATIÑO Comment: This test was performed using the APTIMA(R) HPV Assay([employer]This assay detects E6/E7 viral messenger RNA (mRNA)from 14 high-risk HPV types (16,18,31,33,35,39,45,51,52,56,58,59,66,68).For additional information please refer to:http://education.Purfresh.SightCall/faq/UUM815q5(This link is being provided for informational/educational purposes only.)The analytical performance characteristics of thisassay have been determined [place]. The modificationshave not been cleared or approved by the FDA. Thisassay has been validated pursuant to the CLIAregulations and is used for clinical purposes.Test Performed by Damien Matias,[facility],[address] [place] [address] [id number] Pompa M.D., Ph.D., Director of [phone], [facility] [id number] FLUID SPECIMEN / Unknown 03/06/2018 4:55 PM CDT 03/06/2018 4:55 PM CDT us Generic Conversion Md JUAREZ PATHOLOGY/CYTOLOGY ORDLisa ADDIEJONNY Final Result [facility] [address] [place], [place] , [place] [phone] * COLONOSCOPY (06/22/2017) us Documents Scanned SCANNING Final Result SABRINASOHAIL RODRIGUEZ from Last 3 Months or Most Recently Relevant to Health Maintenance Insurance [facility] Advance Directives Documents on File Type Date Recorded Patient Sugar Laboratory Assistant Expl anation Advance Directives and Living Will 01/27/2020 12:00 AM ADVANCED DIRECTIVES Advance Directives and Living Will 01/30/2017 12:00 AM ADVANCED DIRECTIVES Care Teams Assistive Technology Trainer Relationship Specialty Start Date End Date Lia Tim DO [address] [place] [address] [place] [address] PCP - General FAMILY PRACTICE 11/21/18
[2025-05-25 06:56] VITALS: BMI 22.6
[2025-05-25 06:59] VITALS: BP 143/79; PULSE 95; RESP 20; O2SAT 98
[2025-05-25] MEDS: LACTATED RINGERS 1,000 ML 150 ML IV CONT (07:06)
--- NOTE | 2025-05-25 07:29 | WPDANESEPPF ---
Anes - Initial Pre Proc Eval Procedure: Operation Date: 05/25/25 08:00 Proposed Procedures p Screening Colonoscopy - Allen Storey MD Date/Time: 05/25/25 07:29 Surgeon: Allen Storey MD Pre Op Diagnosis: Screening Patient Data Age: 59 Gender: F Height: 1.65 m Weight: 61.8 kg Last Vital Signs Pulse 95 05/25/25 06:59 Resp 20 05/25/25 06:59 BP 143/79 H 05/25/25 06:59 Pulse Ox 98 05/25/25 06:59 O2 Del Method Room Air 05/25/25 06:59 Allergies Allergy/AdvReac Type Severity Reaction Status Date / Time No Known Allergies Allergy Verified 05/25/25 06:53 Home Medications ?Medication ?Instructions ?Recorded ?Confirmed ?Type budesonide-formoterol HFA 160 2 puff inhalation Q12H 12/02/19 05/25/25 History mcg-4.5 mcg/actuation aerosol inhaler (Symbicort) cetirizine 10 mg tablet (Zyrtec) 10 mg PO DAILY 12/02/19 05/25/25 History citalopram 20 mg tablet 20 mg PO DAILY 12/02/19 05/25/25 History montelukast 10 mg tablet 10 mg PO DAILY 12/02/19 05/25/25 History (Singulair) sodium sul 1.479 gram-potas ch See Rx Instructions PO PER PKG DIR 02/05/25 05/25/25 Rx 0.188 gram-magnes sul 0.225 gram #24 tabs tablet (Sutab) Patient hx anesthesia problems: none Family hx anesthesia problems: none Results Review: All pre-operative results and documents have been reviewed as part of the pre-operative evaluation. [facility] Surgical History Surgical History History of section September 06, 1993 Family History Family History Mother Thyroid disease Father Hypertension Sibling Hypertension Social History Social History Smoking status: Never smoker Alcohol intake: current Other substance usage details: Occasional Gummies Living arrangements: with family Spiritual care concerns: No Anes - Eval Final PreProcedure Day of Procedure 05/25/25 07:29 Patient weight: normal Lungs: normal air movement Airway: Mallampati scale class II Neurological: alert and oriented Last oral intake: >/= 8 hours ASA classification: II Emergent: no Anesthetic plan: proceed Anesthesia type and monitoring: general GIVS and standard monitoring Results Review: All pre-operative results and documents have been reviewed as part of the pre-operative evaluation. Asthma, allergen/exercise induced, on meds for anxiety/depression. Active w pickleball, no cp or sob. Informed Consent: The patient's anesthetic plan and its attendant risks and benefits were discussed with the patient/family/POA. Questions were solicited and answers provided to the satisfaction of the patient/family/POA.
--- NOTE | 2025-05-25 07:45 | PM.HPGS ---
History of Present Illness History of Present Illness Consent: Risks, benefits, and alternatives have been discussed and questions answered. Patient agrees to proceed with procedure. Chief complaint: Screening Narrative: Taryn Tidwell is a 59 year old female with history of colon polyp, last colonoscopy 5 years ago Review of Systems Review of Systems: All systems reviewed & are unremarkable except as noted in HPI and below PMFSH Past Medical History Medical History (Updated 05/25/25 @ 07:46 by Allen Storey MD) Adenomatous colon polyp Surgical History Surgical History History of section September 06, 1993 Family History Family History Mother Thyroid disease Father Hypertension Sibling Hypertension Social History Social History Smoking status: Never smoker Alcohol intake: current Other substance usage details: Occasional Gummies Living arrangements: with family Spiritual care concerns: No Meds Home Medications and Allergies Home Medications ?Medication ?Instructions ?Recorded ?Confirmed ?Type budesonide-formoterol HFA 160 2 puff inhalation Q12H 12/02/19 05/25/25 History mcg-4.5 mcg/actuation aerosol inhaler (Symbicort) cetirizine 10 mg tablet (Zyrtec) 10 mg PO DAILY 12/02/19 05/25/25 History citalopram 20 mg tablet 20 mg PO DAILY 12/02/19 05/25/25 History montelukast 10 mg tablet 10 mg PO DAILY 12/02/19 05/25/25 History (Singulair) sodium sul 1.479 gram-potas ch See Rx Instructions PO PER PKG DIR 02/05/25 05/25/25 Rx 0.188 gram-magnes sul 0.225 gram #24 tabs tablet (Sutab) Allergies Allergy/AdvReac Type Severity Reaction Status Date / Time No Known Allergies Allergy Verified 05/25/25 06:53 Vital Signs Vital Signs - 24 hr 05/25/25 06:59 Pulse Rate 95 Respiratory Rate 20 Blood Pressure 143/79 H Pulse Oximetry 98 Oxygen Delivery Room Air Exam Const: General: comfortable and no acute distress HENMT: Face/Nose/Sinus: Normal nares present Eyes: General: appearance normal, both eyes and all related structures Neck: Neck: no JVD Resp: Auscultation: clear to auscultation bilaterally Cardio: Rate: regular rate Rhythm: regular rhythm GI: Inspection: non-distended GI Palp: Yes Soft to palpation Skin: General skin exam: normal color Extrem: General: normal to inspection Psych: Mental Status: mental status grossly normal Assessment and Plan Assessment and plan (1) Adenomatous colon polyp: Code(s): D12.6 - Benign neoplasm of colon, unspecified Status: Acute Assessment and Plan: colonoscopy
--- NOTE | 2025-05-25 07:55 | S_PTH ---
PATIENT: Taryn Tidwell [facility]: [facility]#:[id number] AGE/SX: 59/F ROOM: RE05/25/[address]: Allen Storey MD : 1965 BED: DIS: 05/25/2025 SPEC #: [id number] RECD: 05/25/25 09:48 STATUS: IGOR MURGUIA #: [id number] CHIP: 05/25/25 07:[address]: Allen Storey DEPT: [facility] Surgical RECD BY: Janiya Kumar Tissues: A - Colon Polypectomy B - Colon Polypectomy C - Colon Polypectomy Procedures: Hematoxylin and Eosin Stain Gross and Microscopic Level 4
[2025-05-25 08:02] VITALS: BP 117/71; PULSE 75; RESP 17; O2SAT 100
[2025-05-25 08:12] VITALS: BP 131/80; PULSE 73; RESP 17; O2SAT 100
[2025-05-25 08:22] VITALS: BP 123/79; PULSE 77; RESP 20; O2SAT 100
== END 2025-05-25 08:30 | disposition home or self-care (01) ==
PROVIDERS: Visit Provider Internal Medicine Gastroenterology
PROC: 0DJD8ZZ Inspection of Lower Intestinal Tract, Via Natural or Artificial Opening Endoscopic (ICD-10-PCS; CPT 45378; principal; 2025-05-25 08:00)
DX: Z12.11 Encounter for screening for malignant neoplasm of colon (principal); D12.3 Benign neoplasm of transverse colon; D12.5 Benign neoplasm of sigmoid colon; K63.5 Polyp of colon; K64.8 Other hemorrhoids; K57.30 Diverticulosis of large intestine without perforation or abscess without bleeding; J45.909 Unspecified asthma, uncomplicated; F41.9 Anxiety disorder, unspecified; F32.A Depression, unspecified; F12.90 Cannabis use, unspecified, uncomplicated; Z79.51 Long term (current) use of inhaled steroids; Z98.890 Other specified postprocedural states
CPT/HCPCS: 45380; 45385; 88305; J2704; J7120